=== PATIENT | female | born 1995 | race African-American/Black ===

== ENCOUNTER 2017-04-24 13:01 | Emergency (ER) | payer OTHER ==
[2017-04-24 13:19] VITALS: BP 123/63
[2017-04-24] MEDS ORDERED: ACETAMINOPHEN 325 MG TABLET PO STA (13:49)
--- NOTE | 2017-04-24 13:51 | ED Physician Documentation ---
PD HPI FEMALE - Stated complaint Stated Complaint: 8 WKS/BACK PX - Chief complaint Chief Complaint: Back Pain - History obtained from History obtained from: Patient - History of Present Illness Timing - onset: Other (G1 at 8 weeks by dates has been having pelvic cramping radiating to the back for 3 weeks without bleeding and over the last couple of days has had some dizzy episodes with urinary frequency. No fevers.) Review of Systems Constitutional: reports: Reviewed and negative Cardiac: reports: Reviewed and negative Respiratory: reports: Reviewed and negative PD PAST MEDICAL HISTORY - Past Medical History Past Medical History: No - Past Surgical History Past Surgical History: Yes - Present Medications Home Medications: Ambulatory Orders Medication Instructions Recorded Confirmed Nitrofurantoin Monohyd/M-Cryst 1 tab PO BID 5 Days 04/24/17 [Macrobid 100 mg Capsule] - Allergies Allergies/Adverse Reactions: Allergies Allergy/AdvReac Type Severity Reaction Status Date / Time penicillin V Allergy Rash Verified 04/24/17 13:19 - Social History Does the pt smoke?: No Smoking Status: Former smoker Does the pt drink ETOH?: No Does the pt have substance abuse?: No PD ED PE NORMAL - Vitals Vital signs reviewed: Yes - General General: Alert and oriented X 3, No acute distress - Abdomen Abdomen: Normal bowel sounds, Soft, Non tender - Female Female : Other (Bedside ultrasound demonstrates single live intrauterine with heart rate of 143 and no free fluid) - Extremities Extremities: No edema, No calf tenderness / cord - Neuro Neuro: Alert and oriented X 3, Normal speech - Psych Psych: Normal mood, Normal affect Results - Vitals Vitals: Vital Signs - 24 hr 04/24/17 13:17 Temperature 37.0 C Heart Rate 75 Respiratory 16 Rate Blood Pressure 123/63 O2 Saturation 100 Oxygen O2 Source Room air - Labs Labs: Laboratory Tests 04/24/17 14:09 Urine Color YELLOW Urine Clarity HAZY Urine pH 6.0 Ur Specific [place] 1.020 Urine Protein NEGATIVE Urine Glucose (UA) NEGATIVE Urine Ketones NEGATIVE Urine Occult Blood NEGATIVE Urine Nitrite NEGATIVE Urine Bilirubin NEGATIVE Urine Urobilinogen 0.2 (NORMAL) Ur Leukocyte Esterase TRACE H Urine RBC 0-5 Urine WBC 6-10 H Ur Squamous Epith Cells RARE Squamous Urine Bacteria None Seen Ur Microscopic Review INDICATED Urine Culture Comments INDICATED PD MEDICAL DECISION MAKING - ED course ED course: 21-year-old G1 presents with almost subacute pelvic cramping. She has an obvious IUP on ultrasound without free fluid and is found to have evidence of UTI for which she was treated with Macrobid. Departure - Departure Disposition: 01 Home, Self Care Clinical Impression: Cystitis Qualifiers: Weeks of gestation: 8 weeks Qualified Code(s): Z3A.08 - 8 weeks gestation of Condition: Good Record reviewed to determine appropriate education?: Yes Instructions: ED UTI Cystitis Female, ED Preg Established Normal Sxs Prescriptions: Nitrofurantoin Monohyd/M-Cryst [Macrobid 100 mg Capsule] 1 tab PO BID 5 Days Comments: Call your doctor to arrange a follow-up appointment, make the next available appointment. In the interim, return anytime if worse or if new symptoms develop. We will culture your urine, the results should be done in 48-72 hours. If an antibiotic change is necessary we will call you. Return if worse in the meantime, especially if you develop increasing flank pain, fevers, or cannot keep down the medication.
[2017-04-24] MEDS ORDERED: ACETAMINOPHEN 325 MG TABLET PO ONE (14:03)
[2017-04-24 14:21] LABS: BILIRUBIN,URINE NEGATIVE (NEGATIVE)
[2017-04-24 14:29] LABS: UA w/ MICROSCOPIC CHARGE YES
[2017-04-24] MEDS ORDERED: NITROFURANTOIN MACRO 100 MG CAPSULE PO STA (14:40)
[2017-04-24 14:41] LABS: UR CULTURE IF IND INDICATED
[2017-04-24] MEDS ORDERED: NITROFURANTOIN MACRO 100 MG CAPSULE PO ONE (14:47)
== END 2017-04-24 14:52 | disposition home or self-care (01) ==
LOC: ED 13:01
DX: O23.11 Infections of bladder in pregnancy, first trimester (principal); Z3A.08 8 weeks gestation of pregnancy
CPT/HCPCS: 81001; 87086; 99283; A9270; 81003

== ENCOUNTER 2017-05-11 00:07 | Emergency (ER) | payer OTHER ==
[2017-05-11 00:31] LABS: BILIRUBIN,URINE NEGATIVE (NEGATIVE)
[2017-05-11 00:32] LABS: HCG UR QUAL POSITIVE; UA w/ MICROSCOPIC CHARGE YES
--- NOTE | 2017-05-11 00:45 | ED Physician Documentation ---
PD HPI FEMALE - Stated complaint Stated Complaint: FEMALE - Chief complaint Chief Complaint: Abd Pain - History obtained from History obtained from: Patient - History of Present Illness Timing - onset: How many hours ago (approximately 24 hours ago) Timing - details: Abrupt onset, Waxing and waning Associated symptoms: Back pain, Pelvic pain, Vaginal bleeding (scant spotting). No: Fever Contributing factors: (8 weeks . Patient took misoprostol on Wednesday to induce elective , was prescribed tylenol with codeine in anticipation of cramping, which she had the next day although they were mild. 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 denies: Nausea, Vomiting : denies: Dysuria, Frequency PD PAST MEDICAL HISTORY - Past Medical History Past Medical History: No - Past Surgical History Past Surgical History: Yes - Present Medications Home Medications: Ambulatory Orders Medication Instructions Recorded Confirmed No Known Home Medications [No 05/11/17 05/11/17 Known Home Medications] - Allergies Allergies/Adverse Reactions: Allergies Allergy/AdvReac Type Severity Reaction Status Date / Time penicillin V Allergy Rash Verified 05/11/17 00:14 - Social History Does the pt smoke?: No Smoking Status: Former smoker Does the pt drink ETOH?: No Does the pt have substance abuse?: No - Immunizations Immunizations are current?: Yes - POLST Patient has POLST: No PD ED PE NORMAL - Vitals Vital signs reviewed: Yes - General General: Alert and oriented X 3, No acute distress, Well developed/nourished - Cardiac Cardiac: RRR, No murmur - Respiratory Respiratory: No respiratory distress, Clear bilaterally - Abdomen Abdomen: Soft, Non tender, Non distended - Back Back: No CVA TTP Results - Vitals Vitals: Vital Signs - 24 hr 05/11/17 05/11/17 00:11 03:05 Temperature 36.8 C Heart Rate 76 62 Respiratory 16 17 Rate Blood Pressure 136/62 H 124/64 O2 Saturation 100 100 Oxygen O2 Source Room air - Labs Labs: Laboratory Tests 05/11/17 05/11/17 00:23 00:23 Urine Color YELLOW Urine Clarity CLEAR Urine pH 6.0 Ur Specific [place] >=1.030 H >=1.030 H Urine Protein NEGATIVE Urine Glucose (UA) NEGATIVE Urine Ketones NEGATIVE Urine Occult Blood LARGE H Urine Nitrite NEGATIVE Urine Bilirubin NEGATIVE Urine Urobilinogen 0.2 (NORMAL) Ur Leukocyte Esterase TRACE H Urine RBC 6-10 H Urine WBC 4-5 Ur Squamous Epith Cells MOD Squamous H Urine Bacteria None Seen Urine Starch PRESENT Ur Microscopic Review INDICATED Urine Culture Comments NOT INDICATED Urine HCG, Qual POSITIVE - Rads (name of study) pelvic US Radiology: Prelim report reviewed, See rad report PD MEDICAL DECISION MAKING - ED course Complexity details: reviewed results, re-evaluated patient, considered differential, d/w patient ED course: US reveals demise with sac and fetus, no cardiac activity. Patient took misoprostol as a means to induce elective . I reviewed these results with her and instructed her to f/u with [facility] as scheduled (she has an appointment scheduled for later today, 05/11/17). I also discussed the case with Dr. Mohamud (preparation supervisor property claims manager), agrees with d/c home and f/u with [facility], but she can contact his office if she prefers. Departure - Departure Disposition: 01 Home, Self Care Clinical Impression: demise Condition: Good Instructions: ED Miscarriage Inevitable Follow-Up: Dieter Mohamud MD [Provider Admit Priv/Credential] - (Call this morning to arrange for follow-up appointment) Discharge Date/Time: 05/11/17 03:15
[2017-05-11 00:47] LABS: UR CULTURE IF IND NOT INDICATED
[2017-05-11] MEDS ORDERED: oxyCOD/ACETAMIN 5 MG/325 MG TABLET PO STA (01:13)
[2017-05-11] MEDS ORDERED: oxyCOD/ACETAMIN 5 MG/325 MG TABLET PO ONE (01:16)
--- NOTE | 2017-05-11 02:31 | Ultrasound Preliminary Report ---
Exam: US OB First Trimester IMPRESSION: 1. demise. Single Intrauterine interstitial sac containing a fetus. No cardiac activity. Anteri or russ-gestational hemorrhage noted. Abnormal configuration of the gestational sac. 2. Based on crown-rump length, fetus measures 8 weeks 2 days. [facility] SITE ID: [id number]
--- NOTE | 2017-05-11 02:33 | Ultrasound Report ---
EXAM: FIRST TRIMESTER OBSTETRIC ULTRASOUND (Less than 11 weeks) EXAM DATE: 05/11/2017 02:02 AM. CLINICAL HISTORY: Assessment for retained products of conception. COMPARISONS: None. TECHNIQUE: Transabdominal ultrasound examination with static image documentation. LMP: 02/26/2017. Estimated gestational age: 10 weeks 4 days. Estimated due date: 12/03/2017. ASSESSMENT: Gestational Sac: Single intrauterine. Mean gestational sac diameter: 31 mm, 8 weeks 3 days Embryo: CRL (crown-rump length) 19 mm = 8 weeks 2 days. Cardiac activity: Not present Yolk sac: Not seen. Amniotic fluid: Not accurately assessed at this gestational age. Early placenta: Not visible at this gestational age. Other: Abnormal configuration of the gestational sac. Heterogeneous of fluid anteriorly. MATERNAL STRUCTURES: Uterus: Normal position and configuration. Cervix: Closed. Right Ovary: Right ovary measures 2.5 x 2.4 x 2.1 cm. Small internal 2 cm corpus 2 masses. Normal blo od flow. Left Ovary: Left ovary measures 2.8 x 1.3 x 1.4 cm. Normal blood flow. Free Fluid: None. Other: None. IMPRESSION: 1. demise. Single Intrauterine interstitial sac containing a fetus. No cardiac activity. Anteri or russ-gestational hemorrhage noted. Abnormal configuration of the gestational sac. 2. Based on crown-rump length, fetus measures 8 weeks 2 days. [facility] Referring Provider Line: [phone] SITE ID: [id number]
[2017-05-11 03:06] VITALS: BP 124/64
== END 2017-05-11 03:15 | disposition home or self-care (01) ==
LOC: ED 00:07
DX: O02.1 Missed abortion (principal); Z3A.08 8 weeks gestation of pregnancy; R10.2 Pelvic and perineal pain; Z87.891 Personal history of nicotine dependence
CPT/HCPCS: 76801; 81001; 81025; 99283; A9270; 81003; 87086